=== PATIENT | male | born 1945 | race Caucasian/White ===

== ENCOUNTER → 2020-12-14 08:50 | Outpatient (CLI) | payer MEDICARE, OTHER, SELFPAY ==
[2020-12-14] MEDS: COVID-19 VACC #1, MRNA(MOD) 100 MCG/0.5 ML VIAL IM (08:58)
== END ==
PROVIDERS: Visit Provider Internal Medicine
DX: Z23 Encounter for immunization (principal)
CPT/HCPCS: 0011A; 91301

== ENCOUNTER → 2021-01-11 08:40 | Outpatient (CLI) | payer MEDICARE, OTHER, SELFPAY ==
[2021-01-11] MEDS: COVID-19 VACC #2, MRNA(MOD) 100 MCG/0.5 ML VIAL IM (08:50)
== END ==
PROVIDERS: Visit Provider Internal Medicine
DX: Z23 Encounter for immunization (principal)
CPT/HCPCS: 0012A; 91301

== ENCOUNTER → 2022-02-27 15:37 | Outpatient (CLI) | payer MEDICARE, OTHER, SELFPAY ==
[2022-02-27 16:41] LABS: Albumin 4.7 g/dL (3.5-5.0); Albumin Globulin Ratio 1.7 (1.0-2.8); Alkaline Phosphatase 47 U/L (38-126); Aspartate Aminotransferase 41 IU/L (17-59); BUN Creatinine Ratio 15.5 (6-22); Bilirubin Total 0.6 mg/dL (0.2-1.3); Blood Urea Nitrogen 16 mg/dL (9-20); Calcium 9.1 mg/dL (8.4-10.2); Carbon Dioxide 30 mmol/L (22-32); Chloride 103 mmol/L (98-107); Estimated Glomerular Filt Rate > 60.0 mL/min (>60); Globulin 2.7 g/dL (1.7-4.1); Glucose 98 mg/dL (80-110); HEMOLYSIS < 15 (0-50); Potassium 4.4 mmol/L (3.4-5.1); Sodium 140 mmol/L (137-145); Total Protein 7.4 g/dL (6.3-8.2)
[2022-02-27 17:19] LABS: Alanine Aminotransferase 34 IU/L (<50)
[2022-02-27 17:42] LABS: Add Manual Diff / Slide Review NO; Basophils Absolute Auto 0 /uL (0-100); Basophils Percent Auto 0.4 % (0-2); Eosinophils Absolute Auto 200 /uL (0-450); Eosinophils Percent Auto 4.1 % (2-4); Hematocrit 43.9 % (41-53); Hemoglobin 14.8 g/dL (13.5-17.5); Lymphocytes Absolute Auto 1500 /uL (1100-4500); Lymphocytes Percent Auto 27.2 % (25-40); Mean Corpuscular HGB Conc 33.7 % (30-36); Mean Corpuscular Hemoglobin 31.5 PG (26-34); Mean Corpuscular Volume 93.6 fL (80-100); Monocytes Absolute Auto 600 /uL (0-900); Monocytes Percent Auto 10.5 % (3-14); Neutrophils Absolute Auto 3200 /uL (1500-7000); Neutrophils Percent Auto 57.8 % (50-75); Platelet Count 245 X10^3/uL (150-400); Red Blood Cell Count 4.69 X10^6/uL (4.5-5.9); Red Cell Distribution Width 14.2 % (11.6-14.8); White Blood Cell Count 5.5 X10^3/uL (4.5-11.0)
== END ==
PROVIDERS: PCP Internal Medicine; Referring Provider Internal Medicine; Visit Provider Internal Medicine
DX: I10 Essential (primary) hypertension (principal); E78.2 Mixed hyperlipidemia; Z01.810 Encounter for preprocedural cardiovascular examination; Z01.818 Encounter for other preprocedural examination
CPT/HCPCS: 36415; 80053; 85025

== ENCOUNTER → 2022-08-24 17:21 | Outpatient (CLI) | payer MEDICARE, OTHER, SELFPAY ==
[2022-08-24 18:05] LABS: Add Manual Diff / Slide Review NO; Basophils Absolute Auto 0 /uL (0-100); Basophils Percent Auto 0.7 % (0-2); Eosinophils Absolute Auto 200 /uL (0-450); Hematocrit 44.4 % (41-53); Lymphocytes Absolute Auto 1600 /uL (1100-4500); Lymphocytes Percent Auto 32.2 % (25-40); Mean Corpuscular HGB Conc 33.8 % (30-36); Mean Corpuscular Volume 91.7 fL (80-100); Monocytes Absolute Auto 500 /uL (0-900); Monocytes Percent Auto 9.8 % (3-14); Neutrophils Absolute Auto 2700 /uL (1500-7000); Neutrophils Percent Auto 53.3 % (50-75); Platelet Count 226 X10^3/uL (150-400); Red Blood Cell Count 4.84 X10^6/uL (4.5-5.9); Red Cell Distribution Width 14.9 % (11.6-14.8); White Blood Cell Count 5.1 X10^3/uL (4.5-11.0)
[2022-08-24 18:19] LABS: Alanine Aminotransferase 28 IU/L (<50); Albumin 4.6 g/dL (3.5-5.0); Albumin Globulin Ratio 1.6 (1.0-2.8); Alkaline Phosphatase 61 U/L (38-126); Aspartate Aminotransferase 39 IU/L (17-59); BUN Creatinine Ratio 20.8 (6-22); Bilirubin Total 0.9 mg/dL (0.2-1.3); Blood Urea Nitrogen 21 mg/dL (9-20); Calcium 9.1 mg/dL (8.4-10.2); Carbon Dioxide 22 mmol/L (22-32); Chloride 104 mmol/L (98-107); Cholesterol 164 mg/dL (140-199); Estimated Glomerular Filt Rate > 60 mL/min (>60); Globulin 2.8 g/dL (1.7-4.1); Glucose 93 mg/dL (80-110); HDL Cholesterol 90 mg/dL (40-60); HEMOLYSIS < 15 (0-50); LDL Cholesterol Calculated 61 mg/dL (<100); Potassium 4.4 mmol/L (3.4-5.1); Sodium 137 mmol/L (137-145); Total Protein 7.4 g/dL (6.3-8.2); Triglycerides 64 mg/dL (35-150)
[2022-08-24 18:32] LABS: Free T4, Direct Thyroxine 1.18 ng/dL (0.78-2.19)
[2022-08-24 18:45] LABS: Thyroid Stimulating Hormone 1.79 uIU/mL (0.47-4.68)
== END ==
PROVIDERS: PCP Internal Medicine; Referring Provider Internal Medicine; Visit Provider Internal Medicine
DX: E78.2 Mixed hyperlipidemia (principal); I10 Essential (primary) hypertension
CPT/HCPCS: 36415; 80053; 80061; 84439; 84443; 85025

== ENCOUNTER 2023-10-30 09:16 | Day surgery (SDC) | payer MEDICARE, OTHER, SELFPAY ==
--- NOTE | 2023-10-30 | PATH_ITS ---
[facility] [place] Accession Number: [id number] No. of containers..02 Tissue . 01 Material submitted: . PART A: colon - ASCENDING COLON POLYP PART B: colon - DESCENDING COLON POLYP . 01 Diagnosis: A. Ascending Colon, Polyp: Tubular adenoma. . B. Descending Colon, Polyp: Tubular adenoma. [facility] 11/08/2023 1338 Local . 01 Electronically signed: . Cheyenne Young MD, Pathologist NPI- [id number] . 01 Gross description: . Part A: ASCENDING COLON POLYP: Received in formalin is 2 fragment(s) of carney, soft tissue measuring 0.2 x 0.2 x 0.1 cm to 0.2 x 0.1 x 0.1 cm submitted entirely in 1 cassette(s) Part B: DESCENDING COLON POLYP: Received in formalin is 1 fragment(s) of carney, soft tissue measuring 0.4 x 0.2 x 0.2 cm submitted entirely in 1 cassette(s) /AAY 10/31/2023 0456 Local . 01 Pathologist provided ICD-10: D12.2, D12.4 . 01 CPT . 276730, 302736 Specimen Comment: A courtesy copy of this report has been sent to [phone] Performed at: 01 [facility] [address] [place] [address] [address] [facility], [place], [place] [id number] MD Bashir Quinones MD Phone: [phone]
[2023-10-30] MEDS: LACTATED RINGERS 1,000 ML 150 ML IV (09:26)
[2023-10-30 09:32] VITALS: BP 112/72; PULSE 62; RESP 22; TEMP 36.1; O2SAT 96; BMI 35.9
--- NOTE | 2023-10-30 10:14 | PM.HP.1 ---
History of Present Illness History of Present Illness Date Patient Seen: 10/30/23 Time Patient Seen: 10:15 Chief complaint: Colonoscopy Narrative: 78-year-old man personal history of colonic polyps here for screening colonoscopy. Last colonoscopy 5 years ago normal. Family history of intestinal malignancy. No abdominal concerns today [facility] Medical History History of adenomatous polyp of colon Paroxysmal atrial flutter Mixed hyperlipidemia Essential hypertension Surgical History S/P hip replacement (~2014) S/P shoulder surgery (~03/2020) Social History household members: spouse Smoking Status: Never smoker Meds Home Medications and Allergies Home Medications Medication Instructions Recorded Confirmed Type aspirin 81 mg tablet,delayed 81 mg PO DAILY 03/31/21 10/30/23 History release (Adult Low Dose Aspirin) diltiazem HCl 120 mg 120 mg PO DAILY 03/31/21 10/30/23 History capsule,extended release 12 hr lisinopril 10 mg tablet 10 mg PO DAILY 03/31/21 10/30/23 History metoprolol tartrate 25 mg tablet 25 mg PO DAILY 03/31/21 10/30/23 History rosuvastatin 10 mg tablet 10 mg PO DAILY 02/27/22 10/30/23 History Allergies Allergy/AdvReac Type Severity Reaction Status Date / Time moxifloxacin AdvReac Intermediate Really Verified 10/30/23 09:29 sore joints Exam Vital Signs (past 8 hours): - 10/30/23 09:32 Temperature 96.9 F L Pulse Rate 62 Respiratory Rate 22 Blood Pressure 112/72 Pulse Oximetry 96 Oxygen Delivery Method Room Air Oxygen Delivery Method Room Air Narrative Exam Narrative: General adult man alert oriented no acute distress Chest nonlabored respiration Extremities warm well perfused Assessment & Plan Assessment and plan (1) History of adenomatous polyp of colon: Status: Inactive Assessment & Plan narrative: The patient requires colorectal screening and colonoscopy is recommended. Technical details were discussed. Risks, benefits, alternatives explained. Risks including but not limited to myocardial infarction, aspiration, bleeding, pain, missed lesion, incomplete examination, need for further radiographic studies, colonic perforation, and need for major abdominal surgery were discussed. All questions were answered to their satisfaction, and they are in agreement with this plan.
[2023-10-30 10:40] VITALS: BP 90/59; PULSE 64; RESP 20; TEMP 36.1; O2SAT 94
--- NOTE | 2023-10-30 10:42 | P.OP.COLON_ITS ---
Operative Date/Time/Diagnoses Date of procedure: 10/30/23 Time of procedure: 10:42 Pre-op diagnosis: Colonic polyps Post-op diagnosis: other (Colonic polyps x2) Procedure & Clinicians Study performed: Colonoscopy and polypectomy Same procedure as scheduled: Yes Indications: History of colonic polyps Colorectal screening Surgeon: Jamil Ortiz Procedure Notes Procedure in detail: The history and physical was performed/updated and the patient is ASA class is 2. The procedure was discussed in detail with the patient. Potential risks complications including infection, bleeding, missed diagnosis, perforation, need for surgery, and were explained. Their questions were answered and informed consent was obtained. Patient was brought to the procedure room and placed standard monitoring equipment. The patient's vital signs were monitored continuously throughout the entire procedure. Prior to starting time-out was performed. The patient was placed in the left lateral recumbent position. Procedural sedation was administered by anesthesia. Examination began with a thorough inspection of the perianal area there was no evidence of fissures, fistulae, external hemorrhoids or cutaneous malignancy. The colonoscopy scope was then placed into the anal canal and was advanced to the cecum, which was identified by the ileocecal valve, the appendiceal orifice and the confluence of the taenia. The scope was then slowly withdrawn examining colon thoroughly in all directions, irrigating it of any residual stool. The scope was retroflexed within the rectum The patient tolerated the procedure well. They will be discharged once criteria are met. The prep was of good/excellent quality. The withdrawl time was 9 minutes. FINDINGS * Ascending colon-3 mm polyp removed with biopsy forceps * Descending colon-3 mm polyp removed with biopsy forceps * Sigmoid moderate diverticulosis Specimen(s): other (Ascending and descending colonic polyps) Impression: Colonic polyps x2 Post-procedure Plan for aftercare: Follow-up is been an on pathology findings likely 5 years. Disposition: same day surgery
[2023-10-30 10:45] VITALS: BP 91/63; PULSE 60; RESP 20; O2SAT 98
[2023-10-30 10:50] VITALS: BP 97/68; PULSE 60; RESP 17; O2SAT 99
[2023-10-30 11:00] VITALS: BP 103/67; PULSE 56; RESP 22; O2SAT 96
== END 2023-10-30 11:12 | disposition home or self-care (01) ==
PROVIDERS: Surgery; PCP Internal Medicine; Referring Provider Surgery; Visit Provider Surgery
PROC: 0DJD8ZZ Inspection of Lower Intestinal Tract, Via Natural or Artificial Opening Endoscopic (ICD-10-PCS; CPT 45378; principal; 2023-10-30 10:15)
DX: Z12.11 Encounter for screening for malignant neoplasm of colon (principal); Z86.010 Personal history of colon polyps; K57.30 Diverticulosis of large intestine without perforation or abscess without bleeding; D12.2 Benign neoplasm of ascending colon; D12.4 Benign neoplasm of descending colon
CPT/HCPCS: 45380; J2704

== ENCOUNTER → 2024-04-20 10:31 | Outpatient (CLI) | payer MEDICARE, OTHER, SELFPAY | PROVIDERS: PCP Internal Medicine; Visit Provider Physician Assistant Medical | DX: L03.032 Cellulitis of left toe (principal); L30.9 Dermatitis, unspecified | CPT/HCPCS: 87070; 87205 ==

== ENCOUNTER → 2025-02-23 08:48 | Outpatient (CLI) | payer MEDICARE, OTHER, SELFPAY ==
[2025-02-23 10:39] LABS: Add Manual Diff / Slide Review NO; Basophils Absolute Auto 0 /uL (0-100); Basophils Percent Auto 0.6 % (0-2); Eosinophils Absolute Auto 200 /uL (0-450); Eosinophils Percent Auto 3.8 % (2-4); Hematocrit 45.2 % (41-53); Hemoglobin 15.3 g/dL (13.5-17.5); Lymphocytes Absolute Auto 1300 /uL (1100-4500); Lymphocytes Percent Auto 23.9 % (25-40); Mean Corpuscular HGB Conc 33.8 % (30-36); Mean Corpuscular Hemoglobin 31.6 PG (26-34); Mean Corpuscular Volume 93.6 fL (80-100); Monocytes Absolute Auto 600 /uL (0-900); Neutrophils Absolute Auto 3400 /uL (1500-7000); Neutrophils Percent Auto 61.7 % (50-75); Platelet Count 372 X10^3/uL (150-400); Red Blood Cell Count 4.83 X10^6/uL (4.5-5.9); Red Cell Distribution Width 14.4 % (11.6-14.8); White Blood Cell Count 5.5 X10^3/uL (4.5-11.0)
[2025-02-23 11:00] LABS: Alanine Aminotransferase 35 IU/L (<50); Albumin 4.3 g/dL (3.5-5.0); Albumin Globulin Ratio 1.7 (1.0-2.8); Alkaline Phosphatase 74 U/L (38-126); Aspartate Aminotransferase 46 IU/L (17-59); BUN Creatinine Ratio 18.9 (6-22); Bilirubin Total 0.7 mg/dL (0.2-1.3); Blood Urea Nitrogen 17 mg/dL (9-20); Calcium 9.5 mg/dL (8.4-10.2); Carbon Dioxide 23 mmol/L (22-32); Chloride 104 mmol/L (98-107); Cholesterol 151 mg/dL (140-199); Estimated Glomerular Filt Rate > 60 mL/min (>60); Globulin 2.5 g/dL (1.7-4.1); Glucose 98 mg/dL (80-110); HDL Cholesterol 90 mg/dL (40-60); HEMOLYSIS < 15 (0-50); LDL Cholesterol Calculated 48 mg/dL (<100); Potassium 4.5 mmol/L (3.4-5.1); Sodium 137 mmol/L (137-145); Total Protein 6.8 g/dL (6.3-8.2); Triglycerides 63 mg/dL (35-150)
[2025-02-23 11:14] LABS: Free T4, Direct Thyroxine 1.23 ng/dL (0.78-2.19)
== END ==
PROVIDERS: PCP Internal Medicine; Visit Provider Dermatology
DX: I10 Essential (primary) hypertension (principal); L30.9 Dermatitis, unspecified; E78.2 Mixed hyperlipidemia
CPT/HCPCS: 36415; 80053; 80061; 84439; 84443; 85025

== ENCOUNTER → 2025-04-28 19:11 | Outpatient (CLI) | payer MEDICARE, OTHER, SELFPAY ==
--- NOTE | 2025-04-28 19:13 | DI.MRI.S_ITS ---
PROCEDURE: MR KNEE LT WO CON INDICATIONS: eval soft tissue - left knee pain TECHNIQUE: Noncontrast sagittal PD fast spin echo and T2 fast spin echo with fat saturation, sagittal 3-D FLASH with fat saturation; coronal T1 spin echo and PD fast spin echo with fat saturation, and axial PD fast spin echo with fat saturation through the knee. COMPARISON: None. FINDINGS: Image quality: Excellent. Menisci: Abnormal appearance of the posterior horn of the medial meniscus with abnormal signal that appears to exit to the inferior surface suspicious for oblique tear. Anterior horn of the medial meniscus is normal. Lateral meniscus is normal. Mild Posterior meniscocapsular separation. Cruciate ligaments: Mild increased T2 weighted signal and thinning of the proximal and mid anterior cruciate ligament suspicious for injury/strain without full thickness tear and with intact fibers. Posterior cruciate ligament is normal. Medial structures: Moderate increased T2 weighted signal in the medial soft tissues surrounding the medial collateral ligament with some mild increased T2 weighted signal in the proximal aspect suggest grade 1-2 injury. Moderate increased T2 weighted signal/edema and some suspected increased tenosynovitis and or bursal fluid surrounding the pes anserinus tendons. The semimembranosus tendon insertion is grossly normal. Lateral structures: The lateral collateral ligament, long and short heads of the biceps femoris tendon appear intact. The popliteus tendon appears normal. Iliotibial band appears normal. Anterior structures: The quadriceps and patellar tendons appear intact. Patellar alignment is normal. No femoral trochlear dysplasia or ventral trochlear prominence. No edema in the infrapatellar fat pad. Bones and cartilage: Moderate diffuse bone edema in the medial femoral condyle predominantly in the anterior and middle 1/3 may be related to bone contusion. Mild diffuse cartilaginous thinning in the medial compartment is noted greater than the lateral compartment. Thinning of the medial patellar facet greater than lateral is noted. No gross focal cartilage defect. Joint space: Mild knee joint effusion. Nonspecific prepatellar soft tissue edema. Fluid posterior-medially suggests previously ruptured popliteal cyst with edema in the area surrounding the medial head of the gastrocnemius, semimembranosus tendon and medial soft tissues. IMPRESSION: Suspected ruptured popliteal cyst posterior-medially which may be a cause of pain. Medial meniscus tear. Mild injury/strain anterior cruciate ligament. Suspected grade 1-2 injury of the medial collateral ligament with adjacent edema. Edema and small fluid pes anserine tenosynovitis/bursitis. Mild degenerative fusion. Other findings as above. Dictated by: Stephen Dominguez M.D. on 04/29/2025 at 15:56 Approved by: Stephen Dominguez M.D. on 04/29/2025 at 16:06
--- NOTE | 2025-04-28 19:23 | DI.MRI.S_ITS ---
PROCEDURE: MR LUMBAR SPINE WO CON INDICATIONS: LOWER BACK PAIN TECHNIQUE: Noncontrast sagittal T1 spin echo and T2 fast echo, sagittal STIR, and T2 fast spin echo through the lumbar spine. In cases with scoliosis, additional coronal T2 fast spin echo may be performed. COMPARISON: [facility], CR, XR LUMBAR SPINE 2-3V, 04/28/2025, 8:44. FINDINGS: Image quality: Excellent. Alignment and Curvature: There is mild, approximately 8 millimeters of L4-L5 anterolisthesis secondary to facet hypertrophy. There is trace, approximately 2 millimeters of L1-L2 retrolisthesis. Bone Marrow: Marrow is of normal overall signal. No acute vertebral body compression fractures. Spinal Cord: Conus medullaris terminates at the L1 level. Visualized cord demonstrates normal signal and size. Paraspinous Soft Tissues: No paravertebral masses. T12-L1: Slight loss of disc signal. No central stenosis. No neural foraminal narrowing. No neural compression. L1-L2: Loss of disc signal and height. Mild bilateral facet hypertrophy. Mild narrowing of the central canal. Mild right and moderate left neural foraminal narrowing. No neural compression. L2-L3: Loss of disc signal and height. Moderate, diffuse disc bulge. Mild bilateral facet hypertrophy. Mild ligamentum flavum hypertrophy. Mild to moderate narrowing of the central canal. Moderate bilateral neural foraminal narrowing. No neural compression. L3-L4: Loss of disc signal and height. Moderate, diffuse disc bulge. [id number] bilateral facet hypertrophy. Mild ligamentum flavum hypertrophy. Mild to moderate narrowing of the central canal. Moderate to severe right and moderate left neural foraminal narrowing. No neural compression. L4-L5: Loss of disc signal and height. Mild, diffuse disc bulge. Severe bilateral facet hypertrophy. Mild narrowing of the central canal. Moderate bilateral neural foraminal narrowing. No neural compression. L5-S1: Loss of disc signal. Mild, diffuse disc bulge. Mild bilateral facet hypertrophy. No central stenosis. Mild bilateral neural foraminal narrowing. No neural compression. IMPRESSION: Grade 1 L4-L5 degenerative spondylolisthesis. Multilevel degenerative disc disease and facet arthropathy. No severe central canal stenosis or severe neural foraminal stenosis. No neural compression. Dictated by: Diane Savage MD, PhD on 04/29/2025 at 9:54 Approved by: Diane Savage MD, PhD on 04/29/2025 at 9:57
== END ==
PROVIDERS: PCP Internal Medicine; Referring Provider Orthopaedic Surgery; Visit Provider Orthopaedic Surgery
DX: M43.16 Spondylolisthesis, lumbar region (principal); M51.369 Other intervertebral disc degeneration, lumbar region without mention of lumbar back pain or lower extremity pain; M51.379 Other intervertebral disc degeneration, lumbosacral region without mention of lumbar back pain or lower extremity pain; M48.061 Spinal stenosis, lumbar region without neurogenic claudication; M48.07 Spinal stenosis, lumbosacral region; M47.816 Spondylosis without myelopathy or radiculopathy, lumbar region; M47.817 Spondylosis without myelopathy or radiculopathy, lumbosacral region; S83.242A Other tear of medial meniscus, current injury, left knee, initial encounter; S83.512A Sprain of anterior cruciate ligament of left knee, initial encounter; M71.562 Other bursitis, not elsewhere classified, left knee; M25.462 Effusion, left knee; M25.562 Pain in left knee
CPT/HCPCS: 72148; 73721

== ENCOUNTER → 2025-07-28 16:12 | Outpatient (CLI) | payer MEDICARE, OTHER, SELFPAY ==
--- NOTE | 2025-07-28 16:12 | DI.RAD.S_ITS ---
PROCEDURE: XR RIBS RT MIN 3V W CXR 1V INDICATIONS: fall right side 6 weeks ago, lateral abd pain TECHNIQUE: 2 views of the ribs were acquired, along with a single view chest. COMPARISON: None. FINDINGS: Surgical changes and devices: None. Bones and chest wall: A marker is placed upon the area of clinical concern. Within this region, no displaced rib fracture or other significant rib abnormality can be seen. No rib fractures are seen elsewhere. No suspicious bony lesions. Age-appropriate bony degenerative changes are seen. Overlying soft tissues appear unremarkable. Lungs and pleura: No pleural effusions or pneumothorax. Lungs appear clear. Mediastinum: The cardiac contours are within normal limits. The aorta demonstrates calcification and tortuosity. IMPRESSION: No displaced rib fracture or pneumothorax. Dictated by: Milton Andrew M.D. on 07/28/2025 at 15:45 Approved by: Milton Andrew M.D. on 07/28/2025 at 15:47
== END ==
PROVIDERS: PCP Internal Medicine; Referring Provider Physician Assistant; Visit Provider Physician Assistant
DX: R07.81 Pleurodynia (principal)
CPT/HCPCS: 71101

== ENCOUNTER → 2025-07-29 10:22 | Outpatient (CLI) | payer MEDICARE, OTHER, SELFPAY ==
[2025-07-29 11:03] LABS: Add Manual Diff / Slide Review NO; Hematocrit 44.2 % (41-53); Hemoglobin 14.6 g/dL (13.5-17.5); Lymphocytes Absolute Auto 1200 /uL (1100-4500); Mean Corpuscular HGB Conc 33.0 % (30-36); Mean Corpuscular Hemoglobin 31.2 PG (26-34); Mean Corpuscular Volume 94.4 fL (80-100); Platelet Count 343 X10^3/uL (150-400)
[2025-07-29 11:30] LABS: Alanine Aminotransferase 362 IU/L (<50); Albumin 4.0 g/dL (3.5-5.0); Albumin Globulin Ratio 1.5 (1.0-2.8); Alkaline Phosphatase 746 U/L (38-126); Blood Urea Nitrogen 13 mg/dL (9-20); Calcium 9.0 mg/dL (8.4-10.2); Carbon Dioxide 26 mmol/L (22-32); Chloride 105 mmol/L (98-107); Estimated Glomerular Filt Rate > 60 mL/min (>60); Globulin 2.6 g/dL (1.7-4.1); Glucose 147 mg/dL (70-99); HEMOLYSIS 31 (0-50); Potassium 4.4 mmol/L (3.4-5.1); Sodium 137 mmol/L (137-145); Total Protein 6.6 g/dL (6.3-8.2)
[2025-07-29 12:18] LABS: Gamma Glutamyl Transpeptidase 2325 U/L (15-73)
== END ==
PROVIDERS: PCP Internal Medicine; Referring Provider Physician Assistant; Visit Provider Physician Assistant
DX: R07.81 Pleurodynia (principal); R74.8 Abnormal levels of other serum enzymes; R10.9 Unspecified abdominal pain
CPT/HCPCS: 36415; 80053; 82977; 85025

== ENCOUNTER → 2025-07-30 06:41 | Outpatient (CLI) | payer MEDICARE, OTHER, SELFPAY ==
--- NOTE | 2025-07-30 06:42 | DI.US.S_ITS ---
PROCEDURE: US ABDOMEN COMPLETE INDICATIONS: sharp increase in liver enzymes>300, abdominal pain x 2 week TECHNIQUE: Real-time scanning was performed of the abdominal and retroperitoneal organs, with image documentation. COMPARISON: None. FINDINGS: Liver: Liver is normal in size and homogeneous in echotexture. Gallbladder: Abnormal appearance. Question possible large luminal soft tissue mass. No wall thickening. Biliary ducts: Diffuse biliary ductal dilatation. Dilatation involves both the intrahepatic ducts and extrahepatic ducts. Pancreas: A mass either involving the pancreas or the peripancreatic tissues obstructs the distal common duct. This mass measures approximately 1.9 cm in diameter. Spleen: Spleen is normal in size and homogeneous in echotexture. Kidneys: Kidneys are normal in size and echotexture. Right kidney measures 11.4 cm long; left kidney measures 11.6 cm long. No hydronephrosis or nephrolithiasis. No solid masses. Aorta: Visualized aorta is normal in caliber at less than 3 cm. Iliacs: Proximal common iliac arteries are normal in caliber at less than 2.5 cm. IVC: Intrahepatic inferior vena cava is patent. Miscellaneous: No free abdominal fluid. IMPRESSION: 1. A mass obstructs the biliary tree at the level of the distal common duct. 2. Question large gallbladder luminal mass. Comment: Recommend CT abdomen and pelvis with contrast. Dictated by: Louie Rod M.D. on 07/30/2025 at 8:28 Approved by: Louie Rod M.D. on 07/30/2025 at 8:33
[2025-07-30 15:40] LABS: Hep C Virus Ab w/Reflex Quant NEGATIVE s/c (NEGATIVE)
[2025-07-31 01:07] LABS: Hepatitis B Core AB w/Reflex Negative (Negative)
== END ==
PROVIDERS: PCP Internal Medicine; Referring Provider Physician Assistant; Visit Provider Physician Assistant
DX: K83.8 Other specified diseases of biliary tract (principal); R10.9 Unspecified abdominal pain; R74.8 Abnormal levels of other serum enzymes
CPT/HCPCS: 36415; 76700; 86704; 86708; 86803

== ENCOUNTER → 2025-07-31 07:15 | Outpatient (CLI) | payer MEDICARE, OTHER, SELFPAY ==
--- NOTE | 2025-07-31 07:16 | DI.CT.S_ITS ---
PROCEDURE: CT ABDOMEN PELVIS W CON INDICATIONS: mass on ultrasound TECHNIQUE: After the administration of intravenous contrast, axial sections acquired from the lung bases to the pubic symphysis. Coronal and sagittal reformats were performed. For radiation dose reduction, the following was used: automated exposure control, adjustment of mA and/or kV according to patient size. COMPARISON: [facility], US, US ABDOMEN COMPLETE, 07/30/2025, 7:03. FINDINGS: Image quality: Diagnostic Lower chest: Basal atelectasis in the lungs. Borderline enlarged heart size. Coronary calcifications. Liver: Possible hepatic steatosis Gallbladder and biliary system: Gallbladder appears distended. Moderate intrahepatic biliary dilation. No discrete enhancing mass within the gallbladder. However, in the CHD CBD junction, there is a mass measuring 2.3 x 1.9 cm. Soft tissue infiltrates the adjacent cystic duct. The distal CBD is also mildly dilated at 0.8 cm. Pancreas: Pancreatic head cystic lesion measuring 0.9 cm. Other smaller suspected cystic lesions are present no pancreatic ductal dilation. Spleen: Nonenlarged Adrenals: No discrete nodules Kidneys: Parapelvic cysts are seen. No hydronephrosis. No solid renal mass. Vessels and lymph nodes: The main portal vein appears patent. There are prominent periportal lymph nodes for example on image 4/48 measuring 0.9 cm. No abdominal aortic aneurysm. Mild aortoiliac atherosclerotic calcifications. Bowel and peritoneum: Moderate colonic fecal loading. No small bowel obstruction. Colonic diverticula are seen. Body wall: Moderate fat containing inguinal hernias. Pelvis: Obscured by metallic artifact. Bladder appears under distended. Heterogeneous prostate enhancement is present. Bones: Bilateral hip arthroplasties. IMPRESSION: Type 1 extrahepatic cholangiocarcinoma. Moderate intrahepatic biliary dilation. Soft tissue involvement of the adjacent cystic duct. Gallbladder is mildly distended. Mildly dilated CBD is also seen distally, measuring 0.8 cm. Cystic lesion at the head of the pancreas measuring 0.9 cm, possibly IPMN. Prominent periportal lymph nodes, indeterminate in the setting of suspected cholangiocarcinoma. This study was marked in PACS for communication. Other findings above. Dictated by: Jose Roberto Thomas M.D. on 07/31/2025 at 9:15 Approved by: Jose Roberto Thomas M.D. on 07/31/2025 at 9:23
== END ==
LOC: CT 07:16
PROVIDERS: PCP Internal Medicine; Referring Provider Physician Assistant; Visit Provider Physician Assistant
DX: C22.1 Intrahepatic bile duct carcinoma (principal); K83.8 Other specified diseases of biliary tract; K82.8 Other specified diseases of gallbladder; K86.2 Cyst of pancreas; R19.00 Intra-abdominal and pelvic swelling, mass and lump, unspecified site; I25.10 Atherosclerotic heart disease of native coronary artery without angina pectoris; K40.90 Unilateral inguinal hernia, without obstruction or gangrene, not specified as recurrent
CPT/HCPCS: 74177; Q9967